=== PATIENT | male | born 1970 | race Caucasian/White ===

== ENCOUNTER 2017-09-07 20:53 | Inpatient (IN) ==
[2017-09-10 08:00] VITALS: BP 132/71
== END 2017-09-10 11:17 | disposition home or self-care (01) | DRG 684 ==
LOC: N.ED 20:53 → N.EDINP 09-08 00:25 → SUATTDRO 09-08 00:25 → N.2W 09-08 12:08 → N.2E 09-08 13:09
PROVIDERS: ADMIT Internal Medicine; ATTEND Internal Medicine